=== PATIENT | male | born 1955 | race Caucasian/White ===

== ENCOUNTER 2017-09-26 05:30 | Day surgery (SDC) | payer OTHER ==
[2017-09-26] MEDS ORDERED: Dextrose 5%-Lactated Ringers 1,000 ML IV SCH (06:00)
[2017-09-26] MEDS ORDERED: Propofol 200 MG/20 ML SDV ONE ×2 (06:53→06:57)
[2017-09-26] MEDS ORDERED: fentaNYL 100 MCG/2 ML SDV ONE (06:53)
[2017-09-26] MEDS ORDERED: Midazolam 1 MG/ML 2 ML SDV ONE (06:53)
[2017-09-26] MEDS ORDERED: Glycopyrrolate 0.2 MG/ML 2 ML SDV IVPUSH ONE (07:00)
[2017-09-26] MEDS ORDERED: Pantoprazole 40 MG Vial IVPUSH ONE (07:33)
--- NOTE | 2017-09-28 01:23 | OR ---
DATE OF PROCEDURE: 09/26/2017 PREOPERATIVE DIAGNOSIS: Recent epigastric pain and heartburn. POSTOPERATIVE DIAGNOSES: 1. Intact Jorge Luis fundoplication without significant distal esophageal inflammation. 2. Moderate antral gastritis with scattered small erosions. OPERATIVE PROCEDURE: Esophagogastroduodenoscopy with biopsies of antrum for CLOtest. ANESTHESIA: IV sedation. INDICATION FOR PROCEDURE: This is a 61-year-old presenting for some followup of the epigastric pain. The patient had been prescribed Protonix which apparently was not covered by insurance. He says he did take some of his 's omeprazole recently, which he noted did help with regard to symptoms. Plan is to proceed with upper GI endoscopy with biopsies as indicated. Potential risks including bleeding and perforation were discussed and the patient wishes to proceed. DETAILS OF PROCEDURE: The patient was taken to the operating room and placed in a left lateral decubitus position. IV sedation was administered after which the upper GI endoscope was passed orally through the length of the esophagus and stomach with retroflexion view of the fundus thereafter through the pyloric channel and into the junction of the third and fourth portions of the duodenum. Findings included normal hypopharynx, larynx, upper esophageal sphincter, and esophageal body. At the EG junction, the patient had an intact Jorge Luis effect. There was no gross inflammation or stricturing at the esophagogastric junction. With the scope in the stomach, retroflexion revealed the Jorge Luis effect once again. The proximal stomach was otherwise unremarkable. There is moderate antral gastritis with a few scattered erosions covered with fibrinous exudate. No blood or bleeding was seen. The pyloric channel and visualized portions of the duodenum were unremarkable. At this point, biopsies were taken for CLOtest for H. pylori. Minimal bleeding from the biopsy sites was seen and the scope was withdrawn and the procedure was then concluded. There was some concern about the patient perhaps having some esophageal varices with him having some elevated liver function tests. No esophageal or gastric varices were evident during this exam. The plan will be to call in a course of omeprazole 40 mg a day as the Protonix that was previously prescribed is not covered. If some of this is successful in controlling symptoms, one might over time try to switch him to an H2 meng. Otherwise, if the CLOtest is positive, we will contact the patient if he does have any course of antibiotics. Cuco Carroll MD /[id number]
== END 2017-09-26 09:48 | disposition home or self-care (01) ==
LOC: JP.SDS 05:30
PROVIDERS: ATTEND Surgery
DX: K29.50 Unspecified chronic gastritis without bleeding (principal); K25.9 Gastric ulcer, unspecified as acute or chronic, without hemorrhage or perforation; I25.10 Atherosclerotic heart disease of native coronary artery without angina pectoris; I10 Essential (primary) hypertension; G47.33 Obstructive sleep apnea (adult) (pediatric); Z95.1 Presence of aortocoronary bypass graft
CPT/HCPCS: 43239; 87081; C9113; J2250; J2704; J3010; J7042; J3490

== ENCOUNTER 2023-11-03 08:36 | Day surgery (SDC) | payer MEDICARE, BC ==
[~2023-11-03 08:36] MED LIST: Bacitracin Oint 1 GM U/D Packet ONE
[2023-11-03] MEDS: ceFAZolin 2 GM in Premix Bag 1 BAG IV ONE (09:42)
[2023-11-03] MEDS: Lactated Ringers 1,000 ML IV SCH (09:42)
[2023-11-03] MEDS: Acetaminophen 500 MG Tab PO ONE (09:42)
[2023-11-03] MEDS ORDERED: fentaNYL 250 MCG/5 ML SDV ONE ×2 (10:54→15:02)
[2023-11-03] MEDS ORDERED: Rocuronium 50 MG/5 ML Vial ONE (10:59)
[2023-11-03] MEDS ORDERED: Propofol 200 MG/20 ML SDV ONE (10:59)
[2023-11-03] MEDS ORDERED: Succinylcholine 200 MG/10 ML MDV ONE (10:59)
[2023-11-03] MEDS ORDERED: Glycopyrrolate 0.2 MG/ML 5 ML MDV ONE (10:59)
[2023-11-03] MEDS ORDERED: Neostigmine Methylsulfate 10 MG/10 ML MDV ONE (10:59)
[2023-11-03] MEDS ORDERED: Ondansetron 4 MG/2 ML SDV ONE (10:59)
[2023-11-03] MEDS ORDERED: Dexamethasone 4 MG/ML SDV ONE (10:59)
[2023-11-03] MEDS: Bupivacaine 0.5% 50 ML MDV ONE (14:28)
[2023-11-03] MEDS: Lidocaine 1% with EPINEPHrine 1:100,000 50 ML MDV ONE (14:29)
[2023-11-03] MEDS ORDERED: Lactated Ringers 1,000 ML ONE (15:03)
== END 2023-11-03 18:06 | disposition other institution (70) ==
LOC: JP.SDS 08:36
PROVIDERS: ATTEND Student in an Organized Health Care Education/Training Program
DX: C43.61 Malignant melanoma of right upper limb, including shoulder (principal); I25.2 Old myocardial infarction; I11.0 Hypertensive heart disease with heart failure; I50.32 Chronic diastolic (congestive) heart failure; I25.10 Atherosclerotic heart disease of native coronary artery without angina pectoris; G47.33 Obstructive sleep apnea (adult) (pediatric); K21.9 Gastro-esophageal reflux disease without esophagitis; Z86.16 Personal history of COVID-19; F41.9 Anxiety disorder, unspecified; Z95.5 Presence of coronary angioplasty implant and graft; Z79.899 Other long term (current) drug therapy; Z79.82 Long term (current) use of aspirin; Z88.5 Allergy status to narcotic agent; Z88.8 Allergy status to other drugs, medicaments and biological substances
CPT/HCPCS: 11606; 38525; 78195; 88305; 88307; 88341; 88342; A9270; A9541; J0330; J0690; J1100; J2405; J2704; J2710; J3010; J3490; J7120